=== PATIENT | female | born 1940 | race Caucasian/White ===

== ENCOUNTER 2017-04-13 13:27 | Inpatient (IN) | payer MEDICARE, MEDICAID, SELFPAY ==
[2017-04-13] VITALS (12 sets, daily range): BP systolic 104–166; BP diastolic 53–109; PULSE 72–115; RESP 20–28; TEMP 36.4–37.4; O2SAT 91–100; BMI 25.7; BMI 28.0
--- NOTE | 2017-04-13 13:38 | PC.NURSE ---
RT at to obtain ABG
--- NOTE | 2017-04-13 13:39 | PC.PHONENOTE ---
fentanyl patch to L shoulder
--- NOTE | 2017-04-13 13:42 | XR_ITS ---
XR chest portable Ordering Physician: Pawel Reynoso MD Patient Age: 77 years: Female HISTORY: ITS.REASON: CHEST PAIN AND SOA TECHNIQUE: COMPARISON : Portable chest 10/27/2015 ... & PA and lateral chest January 06, 2017 FINDINGS Left lower lobe pneumonic infiltrate clearly evident, superimposed upon chronic changes evident. Left lower lobe mixed interstitial pneumonia partial obscures left heart border but the diaphragm remains evident and well-defined. Inspiration less optimal. Underlying chronic lung changes with hyperexpansion at the upper lung campuzano again noted reflect underlying COPD. Mild apical pleural scarring left greater the right similar to previous studies. . . Heart normal size. Cardiac silhouette appears smaller than previous studies. Hilar regions appears stable satisfactory. A calcified aortic arch similar to previous studies. The previous vertebroplasty densities at multiple thoracic vertebral bodies are seen projected over the superior mediastinum obtained for density here. Mild blunting right CP angle likely reflecting mild chronic pleural change. Chest wall unremarkable. IMPRESSION: Left lower lobe pneumonia COPD.
--- NOTE | 2017-04-13 14:23 | PC.NURSE ---
RT at bs attempting ABG again at this time.
[2017-04-13 14:30] LABS: Basophils % 0.2 % (0.1-2.0); Eosinophils # 0.1 K/mm3 (0.0-0.4); Eosinophils % 0.4 % (0.1-12.0); Hematocrit 38.5 % (37.0-47.0); Hemoglobin 12.3 g/dL (12.2-16.2); Lymphocytes % 4.8 K/mm3 (10-50); Mean Corpuscular HGB Conc 31.9 g/dL (31.8-35.4); Mean Corpuscular Hemoglobin 33.4 pg (27.0-31.2); Mean Corpuscular Volume 104.6 fl (81-99); Monocytes # 0.8 K/mm3 (0.1-1.0); Monocytes % 4.1 % (1.7-9.3); Neutrophils # 18.4 K/mm3 (1.8-7.8); Neutrophils % 90.5 % (37.0-80.0); Platelet Count 290 K/mm3 (142-424); Red Blood Count 3.68 M/mm3 (4.20-5.40); Red Cell Distribution Width 13.4 % (11.5-17.5); White Blood Count 20.4 K/mm3 (4.8-10.8)
[2017-04-13 14:37] LABS: VBG Base Excess 4.9 mmol/L (-2.4-2.3); VBG HCO3 31.7 mmol/L (23-30); VBG Oxygen Saturation 77.5 % (50-70); VBG PH 7.28 mmol/L (7.31-7.41); VBG PO2 46.9 mmol/L (28-40); VBG Total CO2 33.8 mmol/L (23-27)
[2017-04-13 14:39] LABS: VBG PCO2 69.3 mmol/L (35-51)
[2017-04-13 14:40] LABS: Alanine Aminotransferase 45 U/L (12-78); Albumin Level 3.9 gm/dL (3.4-5.0); Albumin/Globulin Ratio 1.1 (1.1-1.8); Alkaline Phosphatase 140 U/L (46-116); Anion Gap 12.1 mEq/L (5-15); Aspartate Amino Transferase 53 U/L (15-37); Bilirubin,Total 0.4 mg/dL (0.2-1.0); Blood Urea Nitrogen 19 mg/dL (7-18); Carbon Dioxide 33 mmol/L (21.0-32.0); Chloride 93 mmol/L (98-107); Creatinine Clearance Estimated 43 mL/min (0-300); Creatinine,Serum 1.15 mg/dL (0.55-1.02); Estimated Glomerular Filt Rate 46 ml/min (>60); GFR (African American) 55 ML/MIN (>60); Globulin 3.4 gm/dl (1.3-3.2); Glucose 106 mg/dL (74-106); MANUAL DIFFERENTIAL MANUAL DIFFERENTIAL (MANUAL DIFF); Potassium 5.1 mmoL/L (3.5-5.1); Sodium 133 mmol/L (136-145); Total Protein,Serum 7.3 gm/dL (6.4-8.2)
[2017-04-13 14:45] LABS: Lactic Acid 2.3 mmol/L (0.4-2.0); Reflex Lactic Add Lactic Reflex
[2017-04-13 14:54] LABS: CKMB Relative Index 2.6 U/L (0-4.0); Creatine Kinase 38 U/L (26-192); Troponin I < 0.02 ng/ml (0.00-0.06)
[2017-04-13 15:06] LABS: Lymphocytes % 2 % (10-50); Monocytes % 4 % (2-9); Neutrophils % 92 % (42-76); Platelet Estimate Normal; RBC Morphology Normal; Total Cells Counted 100
--- NOTE | 2017-04-13 15:33 | HMH.EDSOB ---
ED Disposition Clinical Impression: Acute respiratory acidosis, CO2 narcosis LLL pneumonia Qualifiers: Pneumonia type: due to unspecified organism Qualified Code(s): J18.1 - Lobar pneumonia, unspecified organism Mental status change Qualifiers: Altered mental status type: unspecified Qualified Code(s): R41.82 - Altered mental status, unspecified Leukocytosis Qualifiers: Leukocytosis type: other Qualified Code(s): D72.828 - Other elevated white blood cell count Disposition: Still a Patient Condition on Discharge: Serious Time of Disposition: 15:33 - Critical Care Critical Care Time: Yes Attestation: On 04/13/17, the high probability of a clinically significant, sudden or life threatening deterioration of the following system(s) required my full and direct attention, intervention and personal management. The time I documented below is in addition to time spent performing reported procedures but includes the following listed in this critical care notation. Total Critical Care Time: 35 Vital system(s) involved:: Central Nervous System, Respiratory Failure My critical care processes included: Assessment & monitoring of V/S, Initial and Re-exams, Data Review/Interpretation, Coordinating Care, Medication Orders and management, Documentation Medical Decision Making - Medical Records Medical records reviewed: Yes: I reviewed the patient's medical records. Vital Signs: 04/13/17 13:28 04/13/17 14:22 04/13/17 14:35 Temperature 99.4 F Temperature Source Temporal Artery Scan Pulse Rate Pulse Rate [Right Brachial] 107 H 115 H Respiratory Rate 26 H 24 Blood Pressure Blood Pressure [Right Arm] 166/99 152/93 Blood Pressure Mean [Right Arm] 121 112 Blood Pressure Source Blood Pressure Source [Right Arm] Automatic Cuff Automatic Cuff Blood Pressure Position Blood Pressure Position [Right Arm] Sitting Sitting 02 Sat by Pulse Oximetry 91 L 95 95 Oxygen Delivery Method Nasal Cannula Nasal Cannula Nasal Cannula Oxygen Flow Rate (LPM) 4 3 3 04/13/17 14:50 04/13/17 16:25 04/13/17 16:26 Temperature Temperature Source Pulse Rate 113 H Pulse Rate [Right Brachial] 113 H Respiratory Rate 26 H 24 Blood Pressure 111/53 Blood Pressure [Right Arm] 141/109 Blood Pressure Mean [Right Arm] 119 Blood Pressure Source Automatic Cuff Blood Pressure Source [Right Arm] Automatic Cuff Blood Pressure Position Sitting Blood Pressure Position [Right Arm] Sitting 02 Sat by Pulse Oximetry 91 L Oxygen Delivery Method Nasal Cannula BiPAP BiPAP Oxygen Flow Rate (LPM) 3 - Lab Data Lab results reviewed: Yes: I reviewed the patient's lab results. Lab Results 04/13/17 13:45: WBC 20.4 H*, RBC 3.68 L, Hgb 12.3, Hct 38.5, MCV 104.6 H, MCH 33.4 H, MCHC 31.9, RDW 13.4, Plt Count 290, MPV 7.0 L, Neut % (Auto) 90.5 H, Lymph % (Auto) 4.8 L, Cuming % (Auto) 4.1, Eos % (Auto) 0.4, Baso % (Auto) 0.2, Neut # (Auto) 18.4 H, Lymph # (Auto) 1.0, Cuming # (Auto) 0.8, Eos # (Auto) 0.1, Baso # (Auto) 0.0, Total Counted 100, Neutrophils % (Manual) 92 H, Band Neutrophils % 2.0, Lymphocytes % (Manual) 2 L, Monocytes % (Manual) 4, Platelet Estimate Normal, RBC Morphology Normal 04/13/17 13:45: Sodium 133 L, Potassium 5.1, Chloride 93 L, Carbon Dioxide 33 H, Anion Gap 12.1, BUN 19 H, Creatinine 1.15 H, Estimated Creat Clear 43, Estimated GFR 46 L, Est GFR ( Amer) 55 L, Glucose 106, Calcium 9.0, Total Bilirubin 0.4, AST 53 H, ALT 45, Alkaline Phosphatase 140 H, Total Protein 7.3, Albumin 3.9, Globulin 3.4 H, Albumin/Globulin Ratio 1.1 04/13/17 13:45: Total Creatine Kinase 38, CK-MB (CK-2) 1.0, CK-MB (CK-2) Rel Index 2.6, Troponin I < 0.02 04/13/17 14:20: Lactic Acid 2.3 H 04/13/17 14:30: VBG pH 7.28 L, VBG pCO2 69.3 H, VBG pO2 46.9 H, VBG HCO3 31.7 H, VBG Total CO2 33.8 H, VBG O2 Saturation 77.5 H, VBG Base Excess 4.9 H Result diagrams: 04/13/17 13:45 01/15/18 13:45 Orders (Tests/Meds): ED MEDICATIONS Gener
--- NOTE | 2017-04-13 15:34 | PC.NURSE ---
RAMIRO ANDRES SPEAKING WITH DR. JERRY
--- NOTE | 2017-04-13 15:39 | PC.NURSE ---
PT PLACED ON BIPAP AT THIS TIME
--- NOTE | 2017-04-13 15:49 | PC.NURSE ---
had me call pharmacy to consult which abx coverage to order for patient since she has multiple allergies and possible MRSA pneumonia. Joelle Torres, PHARM D stated to give Cefepime 2 gram q12hr and Vancomycin 1250mg IV once. Joelle stated she would look at Vancomycin dosing after patient is admitted and will dose. Notified Dr. Spence of orders.
--- NOTE | 2017-04-13 16:54 | HMH.PHACONS ---
- Pharmacy Consult Date: 04/13/17 Time: 16:54 Referring provider: DR. JERRY Reason for Consult:: VANCOMYCIN DOSING Allergies and ADEs:: Allergies Allergy/AdvReac Type Severity Reaction Status Date / Time codeine [CODEINE] Allergy Mild Verified 04/13/17 13:30 erythromycin base Allergy Mild Verified 04/13/17 13:30 [ERYTHROMYCIN BASE] Sulfa (Sulfonamide Allergy Mild Verified 04/13/17 13:30 Antibiotics) [SULFA (SULFONAMIDE ANTIBIOTICS)] amoxicillin [From Amoxil] Allergy Verified 04/13/17 13:30 azithromycin [From Zithromax] Allergy Verified 04/13/17 13:30 cetirizine [From Zyrtec] Allergy Verified 04/13/17 13:30 ciprofloxacin Allergy Verified 04/13/17 13:30 terbutaline [From Brethine] Allergy Verified 04/13/17 13:30 Home Medications:: Home Medications Medication Instructions Recorded Confirmed Type Alendronate Sodium/Vitamin D3 1 each PO WEEKLY 04/13/17 04/13/17 History [Fosamax Plus D 70 mg-2,800 Iu] Aspirin [Aspirin 81mg EC Tab] 81 mg PO DAILY 04/13/17 04/13/17 History Buspirone HCl [Buspar 5mg tablet] 5 mg PO 0600,1700 04/13/17 04/14/17 History Carvedilol [Coreg 3.125mg 3.125 mg PO BID 04/13/17 04/14/17 History Tablet] Cholecalciferol (Vitamin D3) 5,000 unit PO DAILY 04/13/17 04/13/17 History [Vitamin D3] Ferrous Sulfate [Ferrous Sulfate 325 mg PO DAILY 04/13/17 04/14/17 History 325mg Tablet] Fluticasone Propionate [Flonase 2 spr NS BID 04/13/17 04/13/17 History 50mcg nasal spray 16gm] Furosemide [Lasix 20mg tablet] 10 mg PO DAILY 04/13/17 04/14/17 History Ibuprofen [Ibuprofen 800mg Tab] 800 mg PO HS 04/13/17 04/13/17 History LORazepam [Ativan 0.5mg tablet] 0.25 mg PO TID 04/13/17 04/14/17 History Levothyroxine Sodium 88 mcg PO DAILY 04/13/17 04/13/17 History [Levothyroxine 88mcg (0.088mg) Tab] Montelukast Sodium [Singulair 10mg 10 mg PO PM 04/13/17 04/13/17 History tablet] Omeprazole [Omeprazole 40mg 40 mg PO BID 04/13/17 04/13/17 History Capsule] Oxycodone HCl/Acetaminophen 10 - 325 each PO QID 04/13/17 04/13/17 History [Oxycodone W/Apap 325mg Tablet] Polyethylene Glycol 3350 [Miralax 17 gm PO DAILY 04/13/17 04/14/17 History Powder] Sennosides/Docusate Sodium 2 each PO HS 04/13/17 04/13/17 History [Teresa-Colace Tablet] Trazodone HCl 50 mg PO HS 04/13/17 04/13/17 History fentaNYL [fentaNYL 50mcg Patch] 50 mcg TD Q72H 04/13/17 04/13/17 History guaiFENesin [Mucinex 600mg tablet] 600 mg PO Q12H 04/13/17 04/13/17 History predniSONE [Deltasone 10mg 10 mg PO DAILY 04/13/17 04/13/17 History tablet] raNITIdine HCl [Acid Stump Shooter] 150 mg PO BID 04/13/17 04/13/17 History Acetaminophen 500 mg PO Q6HP PRN 04/14/17 04/14/17 History Albuterol Sulfate [Proventil-HFA 2 puffs IH QIDP PRN 04/14/17 04/14/17 History 90mcg/puff Inh] Bisacodyl [Bisacodyl 10mg Supp] 10 mg RC DAILYP PRN 04/14/17 04/14/17 History Guaifenesin/Dextromethorphan 10 ml PO Q4HP PRN 04/14/17 04/14/17 History [Robafen Dm Cough Liquid] Loperamide HCl [Loperamide] 2 mg PO Q3HP PRN MDD 16 MG 04/14/17 04/14/17 History Mag Carb/Aluminum Hydrox/Algin 30 ml PO Q4HP PRN 04/14/17 04/14/17 History [Gaviscon Liquid] Meclizine HCl [Meclizine 25mg Tab] 25 mg PO TIDP PRN 04/14/17 04/14/17 History Melatonin 3 mg PO HS 04/14/17 04/14/17 History Ondansetron HCl [Ondansetron 4mg 4 mg PO Q6HP PRN 04/14/17 04/14/17 History Tab] Phenol/Glycerin [Chloraseptic Max 2 spr MM QIDP PRN 04/14/17 04/14/17 History [place]] Height: 1.63 m Weight: 68.039 kg Laboratory Results:: X Medical History: Denies:: Diabetes Mellitus Type 1, Diabetes Mellitus Type 2 Assessment and Plan (1) LLL pneumonia Current visit: Yes Status: Acute Qualifiers: Pneumonia type: due to unspecified organism Qualified Code(s): J18.1 - Lobar pneumonia, unspecified organism Category: Medical Code(s): J18.1 - Lobar pneumonia, unspecified organism - Assessment and plan all Dx
--- NOTE | 2017-04-13 16:57 | P.CONPHA_ITS ---
- Pharmacy Consult Date: 04/13/17 Time: 16:54 Referring provider: DR. JERRY Reason for Consult:: VANCOMYCIN DOSING Allergies and ADEs:: Allergies Allergy/AdvReac Type Severity Reaction Status Date / Time codeine [CODEINE] Allergy Mild Verified 04/13/17 13:30 erythromycin base Allergy Mild Verified 04/13/17 13:30 [ERYTHROMYCIN BASE] Sulfa (Sulfonamide Allergy Mild Verified 04/13/17 13:30 Antibiotics) [SULFA (SULFONAMIDE ANTIBIOTICS)] amoxicillin [From Amoxil] Allergy Verified 04/13/17 13:30 azithromycin [From Zithromax] Allergy Verified 04/13/17 13:30 cetirizine [From Zyrtec] Allergy Verified 04/13/17 13:30 ciprofloxacin Allergy Verified 04/13/17 13:30 terbutaline [From Brethine] Allergy Verified 04/13/17 13:30 Home Medications:: Home Medications Medication Instructions Recorded Confirmed Type Alendronate Sodium/Vitamin D3 1 each PO WEEKLY 04/13/17 04/13/17 History [Fosamax Plus D 70 mg-2,800 Iu] Aspirin [Aspirin 81mg EC Tab] 81 mg PO DAILY 04/13/17 04/13/17 History Buspirone HCl [Buspar 5mg tablet] 5 mg PO 0600,1700 04/13/17 04/14/17 History Carvedilol [Coreg 3.125mg 3.125 mg PO BID 04/13/17 04/14/17 History Tablet] Cholecalciferol (Vitamin D3) 5,000 unit PO DAILY 04/13/17 04/13/17 History [Vitamin D3] Ferrous Sulfate [Ferrous Sulfate 325 mg PO DAILY 04/13/17 04/14/17 History 325mg Tablet] Fluticasone Propionate [Flonase 2 spr NS BID 04/13/17 04/13/17 History 50mcg nasal spray 16gm] Furosemide [Lasix 20mg tablet] 10 mg PO DAILY 04/13/17 04/14/17 History Ibuprofen [Ibuprofen 800mg Tab] 800 mg PO HS 04/13/17 04/13/17 History LORazepam [Ativan 0.5mg tablet] 0.25 mg PO TID 04/13/17 04/14/17 History Levothyroxine Sodium 88 mcg PO DAILY 04/13/17 04/13/17 History [Levothyroxine 88mcg (0.088mg) Tab] Montelukast Sodium [Singulair 10mg 10 mg PO PM 04/13/17 04/13/17 History tablet] Omeprazole [Omeprazole 40mg 40 mg PO BID 04/13/17 04/13/17 History Capsule] Oxycodone HCl/Acetaminophen 10 - 325 each PO QID 04/13/17 04/13/17 History [Oxycodone W/Apap 325mg Tablet] Polyethylene Glycol 3350 [Miralax 17 gm PO DAILY 04/13/17 04/14/17 History Powder] Sennosides/Docusate Sodium 2 each PO HS 04/13/17 04/13/17 History [Teresa-Colace Tablet] Trazodone HCl 50 mg PO HS 04/13/17 04/13/17 History fentaNYL [fentaNYL 50mcg Patch] 50 mcg TD Q72H 04/13/17 04/13/17 History guaiFENesin [Mucinex 600mg tablet] 600 mg PO Q12H 04/13/17 04/13/17 History predniSONE [Deltasone 10mg 10 mg PO DAILY 04/13/17 04/13/17 History tablet] raNITIdine HCl [Acid Folding Machine Tender] 150 mg PO BID 04/13/17 04/13/17 History Acetaminophen 500 mg PO Q6HP PRN 04/14/17 04/14/17 History Albuterol Sulfate [Proventil-HFA 2 puffs IH QIDP PRN 04/14/17 04/14/17 History 90mcg/puff Inh] Bisacodyl [Bisacodyl 10mg Supp] 10 mg RC DAILYP PRN 04/14/17 04/14/17 History Guaifenesin/Dextromethorphan 10 ml PO Q4HP PRN 04/14/17 04/14/17 History [Robafen Dm Cough Liquid] Loperamide HCl [Loperamide] 2 mg PO Q3HP PRN MDD 16 MG 04/14/17 04/14/17 History Mag Carb/Aluminum Hydrox/Algin 30 ml PO Q4HP PRN 04/14/17 04/14/17 History [Gaviscon Liquid] Meclizine HCl [Meclizine 25mg Tab] 25 mg PO TIDP PRN 04/14/17 04/14/17 History
--- NOTE | 2017-04-13 17:53 | PC.NURSE ---
pt cannot tolerate sara hose at this time
[2017-04-13 19:06] LABS: Lactic Acid Follow Up (RFLX 1) 1.6 (0.4-2.0)
[2017-04-14] VITALS (13 sets, daily range): BP systolic 140–180; BP diastolic 72–97; PULSE 63–111; RESP 20–24; TEMP 36.2–37.4; O2SAT 90–100
--- NOTE | 2017-04-14 00:29 | PC.NURSE ---
UPON CHARTING ASSESSMENT PT TRIGGERED FOR SEVERE SEPSIS R/T: WBC: 20.4 RR > 20 HR > 90 PT USE OF BIPAP AND DOCUMENTED INFECTION NOTIFIED @ 0006 ([facility]) ORDER: GIVE 1L BOLUS OF LR STAT.
--- NOTE | 2017-04-14 03:47 | PC.NURSE ---
Addendum entered by Michelle Bernstein RN 04/14/17 03:59: VSS Original Note: PT HAS BEEN VERY ANXIOUS AND RESTLESS TONIGHT, STATES I CANT GET ANY SLEEP WITH THIS THING ON MY FACE. PT EDUCATED MULTIPLE TIMES ON USE OF BIPAP AND THE IMPORTANCE OF LEAVING IT ON. PT GIVEN PRN ATIVAN, PT IS RESTING IN BED WITH EYES CLOSED AT THIS TIME WITH NO COMPLAINTS. TEDS TO BLE NOTED. RHONCHI NOTED DURING LUNG AUSCULTATION. BS ACTIVE IN ALL 4 QAUDS. PT WILL NOT ANSWER STAFF WHEN ASKED NAME AND , PT JUST SCREAMS TAKE THIS THING OFF OF ME. CONTINUES PULSE OX IN PLACE, SATS HAVE REMAINED IN MID TO HIGH 90s. ANXIETY WILL CONTINUE TO BE MONITOR. CALL LIGHT IN REACH, WILL CONTINUE TO MONITOR.
--- NOTE | 2017-04-14 05:44 | PC.NURSE ---
PT HAS NOT VOIDED THIS SHIFT. NURSE IS AWARE & WAS NOTIFIED
--- NOTE | 2017-04-14 07:28 | PC.NURSE ---
REPORT GIVEN TO Pricila JENSEN
--- NOTE | 2017-04-14 07:35 | PC.NURSE ---
REPORT GIVEN TO Cyndy BHAKTA RN
--- NOTE | 2017-04-14 08:03 | PC.NURSE ---
0715 - Received report from Michelle Bernstein RN.
--- NOTE | 2017-04-14 08:19 | HMH.PHAVTE ---
[facility] Pharmacy VTE Monitoring - Patient Demographics Admission date: 04/13/17 Report Date: 04/14/17 Time: 08:19 Allergies/Adverse Reactions: codeine [CODEINE] Allergy (Mild, Verified 04/13/17 13:30) erythromycin base [ERYTHROMYCIN BASE] Allergy (Mild, Verified 04/13/17 13:30) Sulfa (Sulfonamide Antibiotics) [SULFA (SULFONAMIDE ANTIBIOTICS)] Allergy (Mild, Verified 04/13/17 13:30) amoxicillin [From Amoxil] Allergy (Verified 04/13/17 13:30) azithromycin [From Zithromax] Allergy (Verified 04/13/17 13:30) cetirizine [From Zyrtec] Allergy (Verified 04/13/17 13:30) ciprofloxacin Allergy (Verified 04/13/17 13:30) terbutaline [From Brethine] Allergy (Verified 04/13/17 13:30) Height: 1.6 m Weight: 71.866 kg Patient Problems: Current Active Problems LLL pneumonia (Acute) Acute respiratory acidosis (Acute) CO2 narcosis (Acute) Mental status change (Acute) Leukocytosis (Acute) - VTE Risk Labs: VTE Related Lab Results Hgb 12.3 g/dL (12.2-16.2) 04/13/17 13:45 Hct 38.5 % (37.0-47.0) 04/13/17 13:45 Plt Count 290 K/mm3 (142-424) 04/13/17 13:45 BUN 19 mg/dL (7-18) H 04/13/17 13:45 Creatinine 1.15 mg/dL (0.55-1.02) H 04/13/17 13:45 Estimated Creat Clear 43 mL/min (0-300) 04/13/17 13:45 Was VTE Risk Assessment Performed: Yes VTE Risk Level: Very Low Risk - Prophylaxis VTE Prophylaxis Ordered?: Yes Types of VTE Prophylaxis: TEDS Knee High Location of Applied Device: Bilateral Lower Extremeties - VTE Diagnosis Confirmed Treatment or plan recommended: Continue Current Treatment
--- NOTE | 2017-04-14 09:39 | HMH.HP ---
*Admission Date: 04/13/17 *Chief complaint: sob *History of present illness: [facility] - This is a 77-year-old female presenting to the emergency room with productive cough, junction, subjective fever, shortness of breath, for approximately 4 hours, gradually getting worse. Patient is very anxious, describing her pain is pleuritic, over her left chest, worse with deep inspiration. She has a recent travel, denies recent exposure to sick contacts. MD Complaint: shortness of breath, cough, chest pain, anxiety [facility] History I have reviewed the patient's past medical history: Yes Medical History: Reports:: Aneurysm, Cancer (LEFT UPPER ARM) Denies:: Diabetes Mellitus Type 1, Diabetes Mellitus Type 2, MRSA Other Medical History: Reports: Arthritis, Thyroid Disease Laterality Cases: Left: Breast Biopsy, Lumpectomy Other Surgeries: Yes: Cancer Surgery, Colonoscopy, Hysterectomy-Total Amputation: No Fractures: No - *Social History Educational Level: Completed High School Smoking Status: Current every day smoker Tobacco Type: cigarettes # Packs/Day (cigarettes): 1 #Yrs smoked (if former smoker): 30 Alcohol Intake: former Alcohol Intake Frequency:: other Occupational Status: retired Housing: jail Household Members: caregiver - Psychiatric History Expresses thoughts of harming self/others: None Suicide Plan Description: No Plan *Family Hx:: Cancer, Heart Attack Review of Systems - Review of Systems Review of systems:: pertinent systems reviewed and negative unless documented below - Constitutional Reports fever(s) - Eyes Denies change in vision - ENT Denies neck pain - *Cardiovascular Reports shortness of breath, Denies chest pain at rest - *Respiratory Reports cough, Reports shortness of breath with activity - *Gastrointestinal Denies nausea - *Musculoskeletal Denies joint pain, Denies neck pain - Integumentary/Breasts Denies rash - *Neurologic Reports other (Episodes of confusion), Denies seizure-like activity, Denies tingling/numbness/burning sensations Meds Home Medications Medication Instructions Recorded Confirmed Type Alendronate Sodium/Vitamin D3 1 each PO WEEKLY 04/13/17 04/13/17 History [Fosamax Plus D 70 mg-2,800 Iu] Aspirin [Aspirin 81mg EC Tab] 81 mg PO DAILY 04/13/17 04/13/17 History Buspirone HCl [Buspar 5mg tablet] 5 mg PO BID 04/13/17 04/13/17 History Carvedilol [Coreg 3.125mg 3.125 mg PO BID 04/13/17 04/14/17 History Tablet] Cholecalciferol (Vitamin D3) 5,000 unit PO DAILY 04/13/17 04/13/17 History [Vitamin D3] Ferrous Sulfate [Ferrous Sulfate 325 mg PO DAILY 04/13/17 04/13/17 History 325mg Tablet] Fluticasone Propionate [Flonase 2 spr NS BID 04/13/17 04/13/17 History 50mcg nasal spray 16gm] Furosemide [Lasix 20mg tablet] 20 mg PO DAILY 04/13/17 04/13/17 History Ibuprofen [Ibuprofen 800mg Tab] 800 mg PO HS 04/13/17 04/13/17 History LORazepam [Ativan 0.5mg tablet] 0.5 mg PO TID 04/13/17 04/13/17 History Levothyroxine Sodium 88 mcg PO DAILY 04/13/17 04/13/17 History [Levothyroxine 88mcg (0.088mg) Tab] Melatonin/Pyridoxine HCl (B6) 1 each PO HS 04/13/17 04/13/17 History [Melatonin 3 mg Tablet] Montelukast Sodium [Singulair 10mg 10 mg PO PM 04/13/17 04/13/17 History tablet] Omeprazole [Omeprazole 40mg 40 mg PO BID 04/13/17 04/13/17 History Capsule] Oxycodone HCl/Acetaminophen 10 - 325 each PO QID 04/13/17 04/13/17 History [Oxycodone W/Apap 325mg Tablet] Polyethylene Glycol 3350 [Miralax 17 gm PO POSTTR 04/13/17 04/13/17 History Powder] Sennosides/Docusate Sodium 2 each PO HS 04/13/17 04/13/17 History [Teresa-Colace Tablet] Trazodone HCl 50 mg PO HS 04/13/17 04/13/17 History fentaNYL [fentaNYL 50mcg Patch] 50 mcg TD Q72H 04/13/17 04/13/17 History guaiFENesin [Mucinex 600mg tablet] 600 mg PO Q12H 04/13/17 04/13/17 History predniSONE [Deltasone 10mg 10 mg PO DAILY 04/13/17 01
--- NOTE | 2017-04-14 09:46 | P.HP_ITS ---
*Admission Date: 04/13/17 *Chief complaint: sob *History of present illness: this wf sent from [facility] for cough and dec po intake - This is a 77-year-old female presenting to the emergency room with productive cough, junction, subjective fever, shortness of breath, for approximately 4 hours, gradually getting worse. Patient is very anxious, describing her pain is pleuritic, over her left chest, worse with deep inspiration. She has a recent travel, denies recent exposure to sick contacts. MD Complaint: shortness of breath, cough, chest pain, anxiety [facility] History I have reviewed the patient's past medical history: Yes Medical History: Reports:: Aneurysm, Cancer (LEFT UPPER ARM) Denies:: Diabetes Mellitus Type 1, Diabetes Mellitus Type 2, MRSA Other Medical History: Reports: Arthritis, Thyroid Disease Laterality Cases: Left: Breast Biopsy, Lumpectomy Other Surgeries: Yes: Cancer Surgery, Colonoscopy, Hysterectomy-Total Amputation: No Fractures: No - *Social History Educational Level: Completed High School Smoking Status: Current every day smoker Tobacco Type: cigarettes # Packs/Day (cigarettes): 1 #Yrs smoked (if former smoker): 30 Alcohol Intake: former Alcohol Intake Frequency:: other Occupational Status: retired Housing: snf Household Members: caregiver - Psychiatric History Expresses thoughts of harming self/others: None Suicide Plan Description: No Plan *Family Hx:: Cancer, Heart Attack Review of Systems - Review of Systems Review of systems:: pertinent systems reviewed and negative unless documented below - Constitutional Reports fever(s) - Eyes Denies change in vision - ENT Denies neck pain - *Cardiovascular Reports shortness of breath, Denies chest pain at rest - *Respiratory Reports cough, Reports shortness of breath with activity - *Gastrointestinal Denies nausea - *Musculoskeletal Denies joint pain, Denies neck pain - Integumentary/Breasts Denies rash - *Neurologic Reports other (Episodes of confusion), Denies seizure-like activity, Denies tingling/numbness/burning sensations Meds Home Medications Medication Instructions Recorded Confirmed Type Alendronate Sodium/Vitamin D3 1 each PO WEEKLY 04/13/17 04/13/17 History [Fosamax Plus D 70 mg-2,800 Iu] Aspirin [Aspirin 81mg EC Tab] 81 mg PO DAILY 04/13/17 04/13/17 History Buspirone HCl [Buspar 5mg tablet] 5 mg PO BID 04/13/17 04/13/17 History Carvedilol [Coreg 3.125mg 3.125 mg PO BID 04/13/17 04/14/17 History Tablet] Cholecalciferol (Vitamin D3) 5,000 unit PO DAILY 04/13/17 04/13/17 History [Vitamin D3] Ferrous Sulfate [Ferrous Sulfate 325 mg PO DAILY 04/13/17 04/13/17 History 325mg Tablet] Fluticasone Propionate [Flonase 2 spr NS BID 04/13/17 04/13/17 History 50mcg nasal spray 16gm] Furosemide [Lasix 20mg tablet] 20 mg PO DAILY 04/13/17 04/13/17 History Ibuprofen [Ibuprofen 800mg Tab] 800 mg PO HS 04/13/17 04/13/17 History LORazepam [Ativan 0.5mg tablet] 0.5 mg PO TID 04/13/17 04/13/17 History Levothyroxine Sodium 88 mcg PO DAILY 04/13/17 04/13/17 History [Levothyroxine 88mcg (0.088mg) Tab] Melatonin/Pyridoxine HCl (B6) 1 each PO HS 04/13/17 04/13/17 History [Melatonin 3 mg Tablet] Montelukast Sodium [Singulair 10mg 10 mg PO PM 04/13/17 04/13/17 History tablet] Omeprazole [Omeprazole 40mg 40 mg PO BID 04/13/17 04/13/17 History Capsule*
[2017-04-14 10:33] LABS: ABG Base Excess 0.9 mmol/L (-2.4-2.3); ABG HCO3 25.1 mmhg (22.0-26.0); ABG Oxygen Saturation 94 % (90-100); ABG PH 7.44 mmol/L (7.35-7.45); ABG PO2 66.7 mmhg (80-100); ABG TCO2 26.3 mmhg (23-27)
[2017-04-14 10:34] LABS: Oxygen 2 %
[2017-04-14 10:35] LABS: Allen's Test ACCEPTABLE; Source R. RADIAL
--- NOTE | 2017-04-14 11:04 | SW/DCPLANNER ---
Patient is a resident at [facility]. I have spoke with Anne from [facility] and she has stated that patient is [facility] level of care and they will accept her back once she is ready for discharge.
--- NOTE | 2017-04-14 13:30 | PC.NURSE ---
PT NOTED TO HAVE A FENTANYL 50MG PATCH ON (L) UPPER ARM. PATCH IS NOT DATED.
--- NOTE | 2017-04-14 15:30 | PC.NURSE ---
Pt has been A&Ox3 this shift in NAD. VSS. Afebrile. Heart rate reg. Lungs /c rhonchi scattered throughout. O2 @ 4LPM via NC with O2 sats maintaining > 90%; sats will decrease < 90% with ADLs. IV (R) AC intact /s s/s of infiltration/infection. Pt has been OOB to chair this shift. Will continue to monitor.
--- NOTE | 2017-04-14 16:04 | PC.NURSE ---
PT C/O BACK PAIN AND REQUESTED PAIN MEDICATION. NO PAIN MEDICATION ORDERED ON MAY. APPROACHED DR JERRY WHILE ON THE FLOOR AND REQUESTED PAIN MEDICATION FOR THIS PT. HIS RESPONSE WAS I WILL NOT GIVE HER PAIN MEDICATION. THIS NURSE THEN INFORMED HIM THAT SHE WAS WEARING A FENTANYL PATCH WITHOUT A DATE ON IT. DR JERRY'S RESPONSE WAS THAT SHOULD TAKE CARE OF IT.
--- NOTE | 2017-04-14 18:44 | PC.NURSE ---
rEPORT GIVEN TO Rodri PRITCHETT RN.
[2017-04-15] VITALS (8 sets, daily range): BP systolic 129–153; BP diastolic 72–78; PULSE 62–107; RESP 20–22; TEMP 36.8–37.2; O2SAT 88–95
--- NOTE | 2017-04-15 03:32 | PC.NURSE ---
PT HAS RESTED ON AND OFF T/O THE SHIFT. PT TOLERATING 2L NC WELL, CONTINUOUS PULSE OX IN PLACE AND SATS HAVE REMAINED IN MID 90S. PT A&OX3. RHONCHI NOTED DURING LUNG AUSCULTATION. BS ACTIVE IN ALL [address] PT UP TO BSC X1 ASSISTANCE. NO ACUTE DISTRESS NOTED. VSS. WILL CONTINUE TO MONITOR.
--- NOTE | 2017-04-15 07:22 | PC.NURSE ---
REPORT GIVEN TO Juan JENSEN
--- NOTE | 2017-04-15 07:27 | PC.NURSE ---
REPORT GIVEN TO Lj REYES RN
--- NOTE | 2017-04-15 09:11 | HMH.DCSUM ---
General - General Admission date: 04/13/17 Discharge date: 04/15/17 HPI HPI: this wf sent from [facility] for cough and dec po intake - This is a 77-year-old female presenting to the emergency room with productive cough, junction, subjective fever, shortness of breath, for approximately 4 hours, gradually getting worse. Patient is very anxious, describing her pain is pleuritic, over her left chest, worse with deep inspiration. She has a recent travel, denies recent exposure to sick contacts. MD Complaint: shortness of breath, cough, chest pain, anxiety Objective Vital signs: Temp Pulse Resp BP Pulse Ox 98.4 F 107 H 20 129/72 95 04/15/17 07:39 04/15/17 07:59 04/15/17 07:59 04/15/17 07:39 04/15/17 07:59 no acute distress - *Routine HEENT Exam Head: Present: normocephalic Eye: Present: EOMI, PERRL ENT: Present: mucous membranes dry - *Routine Neck Exam Absent: JVD - *Routine Respiratory Exam Absent: respiratory distress - *Routine Cardiovascular Exam Present: murmur - *Routine Abdominal Exam Present: soft - *Routine Extremities Exam Absent: full ROM - *Routine Skin Exam Present: intact. Absent: lesions - *Routine Neurological Exam Present: alert, oriented X3, CN II-XII intact - Routine Psychiatric Exam Present: normal affect Hospital Course Hospital Course: pt did well with ivf and bpap with improved blood gas and on abx - pt tolerating diet and stable sx and pulse oxy Results Labs on day of discharge: Labs from last 24 hours 04/14/17 10:25 Specimen Source R. radial O2 % 2 ABG pH 7.44 ABG pCO2 38.0 ABG pO2 66.7 L ABG HCO3 25.1 ABG Total CO2 26.3 ABG O2 Saturation 94 ABG Base Excess 0.9 Eliu Test Acceptable DS: Diagnosis - Discharge Diagnosis (1) HCAP (healthcare-associated pneumonia) Status: Acute (2) Renal insufficiency Status: Acute Meds Home Medications Medication Instructions Recorded Confirmed Type Alendronate Sodium/Vitamin D3 1 each PO WEEKLY 04/13/17 04/13/17 History [Fosamax Plus D 70 mg-2,800 Iu] Aspirin [Aspirin 81mg EC Tab] 81 mg PO DAILY 04/13/17 04/13/17 History Buspirone HCl [Buspar 5mg tablet] 5 mg PO 0600,1700 04/13/17 04/14/17 History Carvedilol [Coreg 3.125mg 3.125 mg PO BID 04/13/17 04/14/17 History Tablet] Cholecalciferol (Vitamin D3) 5,000 unit PO DAILY 04/13/17 04/13/17 History [Vitamin D3] Ferrous Sulfate [Ferrous Sulfate 325 mg PO DAILY 04/13/17 04/14/17 History 325mg Tablet] Fluticasone Propionate [Flonase 2 spr NS BID 04/13/17 04/13/17 History 50mcg nasal spray 16gm] Furosemide [Lasix 20mg tablet] 10 mg PO DAILY 04/13/17 04/14/17 History Ibuprofen [Ibuprofen 800mg Tab] 800 mg PO HS 04/13/17 04/13/17 History LORazepam [Ativan 0.5mg tablet] 0.25 mg PO TID 04/13/17 04/14/17 History Levothyroxine Sodium 88 mcg PO DAILY 04/13/17 04/13/17 History [Levothyroxine 88mcg (0.088mg) Tab] Montelukast Sodium [Singulair 10mg 10 mg PO PM 04/13/17 04/13/17 History tablet] Omeprazole [Omeprazole 40mg 40 mg PO BID 04/13/17 04/13/17 History Capsule] Oxycodone HCl/Acetaminophen 10 - 325 each PO QID 04/13/17 04/13/17 History [Oxycodone W/Apap 325mg Tablet] Polyethylene Glycol 3350 [Miralax 17 gm PO DAILY 04/13/17 04/14/17 History Powder] Sennosides/Docusate Sodium 2 each PO HS 04/13/17 04/13/17 History [Teresa-Colace Tablet] Trazodone HCl 50 mg PO HS 04/13/17 04/13/17 History fentaNYL [fentaNYL 50mcg Patch] 50 mcg TD Q72H 04/13/17 04/13/17 History guaiFENesin [Mucinex 600mg tablet] 600 mg PO Q12H 04/13/17 04/13/17 History predniSONE [Deltasone 10mg 10 mg PO DAILY 04/13/17 04/13/17 History tablet] raNITIdine HCl [Acid [employer]ing Supplies Sales Representative] 150 mg PO BID 04/13/17 04/13/17 History Acetaminophen 500 mg PO Q6HP PRN 04/14/17 04/14/17 History Albuterol Sulfate [Proventil-HFA 2 puffs IH QIDP PRN 04/14/17 04/14/17 History 90mcg/puff Inh] Bisacodyl [Bi
--- NOTE | 2017-04-15 09:14 | P.DS_ITS ---
General - General Admission date: 04/13/17 Discharge date: 04/15/17 HPI HPI: this wf sent from [facility] for cough and dec po intake - This is a 77-year-old female presenting to the emergency room with productive cough, junction, subjective fever, shortness of breath, for approximately 4 hours, gradually getting worse. Patient is very anxious, describing her pain is pleuritic, over her left chest, worse with deep inspiration. She has a recent travel, denies recent exposure to sick contacts. MD Complaint: shortness of breath, cough, chest pain, anxiety Objective Vital signs: Temp Pulse Resp BP Pulse Ox 98.4 F 107 H 20 129/72 95 04/15/17 07:39 04/15/17 07:59 04/15/17 07:59 04/15/17 07:39 04/15/17 07:59 no acute distress - *Routine HEENT Exam Head: Present: normocephalic Eye: Present: EOMI, PERRL ENT: Present: mucous membranes dry - *Routine Neck Exam Absent: JVD - *Routine Respiratory Exam Absent: respiratory distress - *Routine Cardiovascular Exam Present: murmur - *Routine Abdominal Exam Present: soft - *Routine Extremities Exam Absent: full ROM - *Routine Skin Exam Present: intact. Absent: lesions - *Routine Neurological Exam Present: alert, oriented X3, CN II-XII intact - Routine Psychiatric Exam Present: normal affect Hospital Course Hospital Course: pt did well with ivf and bpap with improved blood gas and on abx - pt tolerating diet and stable sx and pulse oxy Results Labs on day of discharge: Labs from last 24 hours 04/14/17 10:25 Specimen Source R. radial O2 % 2 ABG pH 7.44 ABG pCO2 38.0 ABG pO2 66.7 L ABG HCO3 25.1 ABG Total CO2 26.3 ABG O2 Saturation 94 ABG Base Excess 0.9 Eliu Test Acceptable DS: Diagnosis - Discharge Diagnosis (1) HCAP (healthcare-associated pneumonia) Status: Acute (2) Renal insufficiency Status: Acute Meds Home Medications Medication Instructions Recorded Confirmed Type Alendronate Sodium/Vitamin D3 1 each PO WEEKLY 04/13/17 04/13/17 History [Fosamax Plus D 70 mg-2,800 Iu] Aspirin [Aspirin 81mg EC Tab] 81 mg PO DAILY 04/13/17 04/13/17 History Buspirone HCl [Buspar 5mg tablet] 5 mg PO 0600,1700 04/13/17 04/14/17 History Carvedilol [Coreg 3.125mg 3.125 mg PO BID 04/13/17 04/14/17 History Tablet] Cholecalciferol (Vitamin D3) 5,000 unit PO DAILY 04/13/17 04/13/17 History [Vitamin D3] Ferrous Sulfate [Ferrous Sulfate 325 mg PO DAILY 04/13/17 04/14/17 History 325mg Tablet] Fluticasone Propionate [Flonase 2 spr NS BID 04/13/17 04/13/17 History 50mcg nasal spray 16gm] Furosemide [Lasix 20mg tablet] 10 mg PO DAILY 04/13/17 04/14/17 History Ibuprofen [Ibuprofen 800mg Tab] 800 mg PO HS 04/13/17 04/13/17 History LORazepam [Ativan 0.5mg tablet] 0.25 mg PO TID 04/13/17 04/14/17 History Levothyroxine Sodium 88 mcg PO DAILY 04/13/17 04/13/17 History [Levothyroxine 88mcg (0.088mg) Tab] Montelukast Sodium [Singulair 10mg 10 mg PO PM 04/13/17 04/13/17 History tablet] Omeprazole [Omeprazole 40mg 40 mg PO BID 04/13/17 04/13/17 History Capsule] Oxycodone HCl/Acetaminophen 10 - 325 each PO QID 04/13/17 04/13/17 His
--- NOTE | 2017-04-15 10:16 | PC.NURSE ---
REPORT CALLED TO WINNIE RICKS CALVERT. pT INFORMED MEDICAID MAY NOT COVER AMBULANCE TRANSFER BACK TO FACILITY. PT VERBALIZED UNDERSTANDING.
== END 2017-04-15 11:15 | DRG 194 ==
LOC: ER 15:24 → 2ND 16:00
PROVIDERS: Admitting Provider Emergency Medicine; Emergency Provider Emergency Medicine; PCP Emergency Medicine; Visit Provider Emergency Medicine
DX: J18.1 Lobar pneumonia, unspecified organism (principal); E87.2 Acidosis; Y95 Nosocomial condition; Z99.81 Dependence on supplemental oxygen; J43.9 Emphysema, unspecified; I10 Essential (primary) hypertension; Z72.0 Tobacco use
CPT/HCPCS: 36415; 71045; 80053; 82550; 82553; 82803; 83605; 84484; 85007; 85025; 87040; 93005; 93041; 94640; 94660; 94760; 94761; 96365; 96366; 96375; 96376; 99285; J3370

== ENCOUNTER → 2017-04-17 16:24 | Outpatient (REF) | payer MEDICARE, MEDICAID, SELFPAY | LOC: LAB 16:24 | PROVIDERS: Visit Provider Emergency Medicine | DX: R05 Cough (principal) | CPT/HCPCS: 87275; 87276 ==

== ENCOUNTER → 2017-04-30 11:08 | Outpatient (POV) | payer MEDICARE, MEDICAID, SELFPAY | PROVIDERS: PCP Emergency Medicine; Visit Provider Dermatology | DX: Z00.00 Encounter for general adult medical examination without abnormal findings (principal) ==

== ENCOUNTER 2017-06-11 11:29 | Emergency (ER) | payer MEDICARE, MEDICAID, SELFPAY ==
[2017-06-11 11:32] VITALS: BP 169/110; PULSE 75; RESP 24; TEMP 36.6; O2SAT 95; BMI 24.3
--- NOTE | 2017-06-11 11:45 | HMH.EDGENADL ---
ED Disposition Clinical Impression: Chronic pain disorder, Thoracic compression fracture Disposition: Home, Self-Care Condition on Discharge: Fair Referrals: Hoang Tucker MD [Primary Care Provider] - - Critical Care Critical Care Time: No Attestation: On , the high probability of a clinically significant, sudden or life threatening deterioration of the following system(s) required my full and direct attention, intervention and personal management. The time I documented below is in addition to time spent performing reported procedures but includes the following listed in this critical care notation. Medical Decision Making - Medical Records Medical records reviewed: Yes: I reviewed the patient's medical records. - Buster Inquiry Pt receiving controlled substance: No Buster was queried for this patient: No Vital Signs: 06/11/17 11:32 06/11/17 13:42 Temperature 97.8 F Temperature Source Oral Pulse Rate [Right Brachial] 75 Respiratory Rate 24 Blood Pressure [Right Arm] 169/110 Blood Pressure Mean [Right Arm] 129 Blood Pressure Source [Right Arm] Automatic Cuff Blood Pressure Position [Right Arm] Supine 02 Sat by Pulse Oximetry 95 Oxygen Delivery Method Nasal Cannula Nasal Cannula Oxygen Flow Rate (LPM) 2 2 - Lab Data Lab Results 06/11/17 12:14: WBC 8.0, RBC 3.42 L, Hgb 11.6 L, Hct 36.3 L, MCV 106.2 H, MCH 33.8 H, MCHC 31.9, RDW 13.0, Plt Count 352, MPV 7.5, Neut % (Auto) 65.0, Lymph % (Auto) 23.5, Starr % (Auto) 8.5, Eos % (Auto) 2.4, Baso % (Auto) 0.6, Neut # (Auto) 5.2, Lymph # (Auto) 1.9, Starr # (Auto) 0.7, Eos # (Auto) 0.2, Baso # (Auto) 0.1 06/11/17 12:14: Sodium 133 L, Potassium 4.3, Chloride 95 L, Carbon Dioxide 34 H, Anion Gap 8.3, BUN 17, Creatinine 1.06 H, Estimated Creat Clear 43, Estimated GFR 50 L, Est GFR ( Amer) 61, Glucose 98, Calcium 8.8, Total Bilirubin 0.2, AST 18, ALT 29, Alkaline Phosphatase 151 H, Troponin I < 0.02, Total Protein 6.9, Albumin 3.1 L, Globulin 3.8 H, Albumin/Globulin Ratio 0.8 L, Lipase 198 06/11/17 12:14: Magnesium 2.1 Result diagrams: 06/11/17 12:14 06/11/17 12:14 Orders (Tests/Meds): ED MEDICATIONS Discontinued Medications Generic Name Dose Route Start Last Admin Trade Name Alex PRN Reason Stop Dose Admin Albuterol/Ipratropium 3 ml 06/11/17 13:17 06/11/17 13:41 Duoneb 3ml Neb IH 06/11/17 13:18 3 ml ONCE ONE Administration Oxycodone/Acetaminophen 1 each 06/11/17 13:17 06/11/17 13:20 Percocet 5/325mg Tablet PO 06/11/17 13:18 1 each ONCE ONE Administration Medical Decision Narrative: I discussed the CT scan with a primary care physician Lyn Chin who advised the patient be transferred to [place]. The patient was agreeable to go to the closest center for her spine care. The patient received the Percocet with some improvement of her pain underwent thoracic spine that was positive for T3 and T8 compression fracture with retropulsion. I spoke with Dr. Zamora from [facility] spine and he accepted her for evaluation. She had no neurological deficits. General Adult HPI - General Chief complaint: PAIN Stated complaint: C/O BACK PAIN Time Seen by Provider: 06/11/17 12:13 Mode of Arrival: EMS Limitations: No Limitations Description of Symptoms (Recalled from ER Triage Doc. by RN): C/PO MID BACK AND RIGHT SHOULDER PAIN WORSE FOR LAST TWO WEEKS. PREVIOUSLY HAD X RAYS A FEW DAYS AGO PER HALF-WAY REPORT - History of Present Illness HPI narrative: 77 years old white female with end-stage lung disease who continues to smoke, DNR. She is oxygen and steroid dependent. She has been experiencing lower thoracic pain for the past 2 weeks she underwent chest x-ray on June 09, 2017 which was positive for emphysema and multiple osteoporotic compression fractures of thoracic spine with kyphotic deformity. Patient is on chronic pain control using fentanyl patch 50 mcg and she sti
--- NOTE | 2017-06-11 11:55 | CT_ITS ---
CT thoracic spine wo con CLINICAL INDICATION: Thoracic pain, history of compression fracture. ITS.REASON: lower thoracic pain x 2 weeks, hx of compression f ORDERING PHYSICIAN: Jie Leo MD PATIENT AGE: 77 years COMPARISON: Chest CT of 04/17/2016 FINDINGS: Patient could not be scanned supine and was therefore scanned on her left side. FINDINGS: There is new mild compression change involving the superior endplate of T3. There is diffuse generalized osteopenia with severe wedge compression of T8 and post kyphoplasty changes at T5, T6, and T7. There is thoracic kyphosis. There are old left-sided rib fractures. There is mild retropulsion of the posterior inferior aspect of the T8 vertebral body x 5 mm. IMPRESSION: 1. Mild acute superior endplate compression changes of T3. Very minimal retropulsion of the posterior aspect of T3. The compression changes are approximately 30-40% 2. Prior vertebroplasty at T5, T6, and T7 with severe wedge compression changes of T8 and kyphosis of the lower thoracic spine. There is mild retropulsion of the posterior inferior aspect of the T8 vertebral body x 5 mm. 3. Diffuse osteopenia. The exam is somewhat limited due to patient positioning
--- NOTE | 2017-06-11 11:55 | XR_ITS ---
XR chest 2V HISTORY: ITS.REASON: right lower rib pain x 2 weeks. ORDERING PHYSICIAN: Jie Leo MD PATIENT AGE: 77 years COMPARISON: 04/13/2017 FINDINGS: The cardiomediastinal silhouette and pulmonary vascularity are within normal limits. Chronic opacities noted in the left perihilar region with chronic consolidation or volume loss within the lingula as seen on the previous study. Right lung is clear. There is mild wedging involving the T3 vertebral body which is developed in the interval. Prior kyphoplasty at the 5, T6, T7 with severe wedging of T8 and thoracic kyphosis. IMPRESSION: 1. New mild wedging of the T3 vertebral body superiorly. 2. No other change is evident.
--- NOTE | 2017-06-11 11:56 | XR_ITS ---
XR ribs RT 2V HISTORY: Right rib pain ITS.REASON: PAIN IN THE RIBS ORDERING PHYSICIAN: Jie Leo MD PATIENT AGE: 77 years COMPARISON: None FINDINGS: Multiple views of the right ribs show no evidence of acute fracture. There are old left-sided rib fractures. No evidence of pneumothorax. No effusions or infiltrates. IMPRESSION: No acute fracture apparent
[2017-06-11 12:25] LABS: Basophils # 0.1 K/mm3 (0-0.2); Basophils % 0.6 % (0.1-2.0); Eosinophils # 0.2 K/mm3 (0.0-0.4); Eosinophils % 2.4 % (0.1-12.0); Hematocrit 36.3 % (37.0-47.0); Hemoglobin 11.6 g/dL (12.2-16.2); Lymphocytes # 1.9 K/mm3 (0.7-4.5); Lymphocytes % 23.5 K/mm3 (10-50); Mean Corpuscular HGB Conc 31.9 g/dL (31.8-35.4); Mean Corpuscular Hemoglobin 33.8 pg (27.0-31.2); Mean Corpuscular Volume 106.2 fl (81-99); Mean Platelet Volume 7.5 fl (7.4-10.4); Monocytes # 0.7 K/mm3 (0.1-1.0); Monocytes % 8.5 % (1.7-9.3); Neutrophils # 5.2 K/mm3 (1.8-7.8); Platelet Count 352 K/mm3 (142-424); Red Blood Count 3.42 M/mm3 (4.20-5.40)
[2017-06-11 12:31] LABS: Magnesium 2.1 mg/dL (1.4-2.2)
[2017-06-11 12:40] LABS: Alanine Aminotransferase 29 U/L (12-78); Albumin Level 3.1 gm/dL (3.4-5.0); Albumin/Globulin Ratio 0.8 (1.1-1.8); Alkaline Phosphatase 151 U/L (46-116); Anion Gap 8.3 mEq/L (5-15); Aspartate Amino Transferase 18 U/L (15-37); Bilirubin,Total 0.2 mg/dL (0.2-1.0); Blood Urea Nitrogen 17 mg/dL (7-18); Calcium 8.8 mg/dL (8.5-10.1); Carbon Dioxide 34 mmol/L (21.0-32.0); Chloride 95 mmol/L (98-107); Creatinine Clearance Estimated 43 mL/min (0-300); Creatinine,Serum 1.06 mg/dL (0.55-1.02); Estimated Glomerular Filt Rate 50 ml/min (>60); GFR (African American) 61 ML/MIN (>60); Globulin 3.8 gm/dl (1.3-3.2); Glucose 98 mg/dL (74-106); Lipase 198 u/L (73-393); Potassium 4.3 mmoL/L (3.5-5.1); Sodium 133 mmol/L (136-145); Total Protein,Serum 6.9 gm/dL (6.4-8.2); Troponin I < 0.02 ng/ml (0.00-0.06)
[2017-06-11 16:14] VITALS: BP 145/85; PULSE 72; RESP 20; TEMP 36.9; O2SAT 95
== END 2017-06-11 16:16 | disposition home or self-care (01) ==
PROVIDERS: Emergency Provider Emergency Medicine; PCP Emergency Medicine
DX: S22.060A Wedge compression fracture of T7-T8 vertebra, initial encounter for closed fracture (principal); Z99.81 Dependence on supplemental oxygen; Z79.82 Long term (current) use of aspirin; E03.9 Hypothyroidism, unspecified; F17.210 Nicotine dependence, cigarettes, uncomplicated; Z88.1 Allergy status to other antibiotic agents; Z88.2 Allergy status to sulfonamides; Z88.6 Allergy status to analgesic agent; Z88.8 Allergy status to other drugs, medicaments and biological substances
CPT/HCPCS: 36415; 71046; 71100; 72128; 80053; 83690; 83735; 84484; 85025; 99284

== ENCOUNTER → 2017-10-14 10:52 | Outpatient (REF) | payer MEDICARE, MEDICAID, SELFPAY ==
[2017-10-14 10:55] LABS: Adenovirus F 40/41, stool Not Detected (NotDetected); Astrovirus Not Detected (NotDetected); Campylobacter Not Detected (NotDetected); Clostridium Difficile A/B, PCR Not Detected (NotDetected); Cryptosporidium Not Detected (NotDetected); Cyclospora Cayetanesis Not Detected (NotDetected); Entamoeba histolytica Not Detected (NotDetected); Enteroaggregative E coli Not Detected (NotDetected); Enteropathogenic E coli Not Detected (NotDetected); Enterotoxigenic E coli Not Detected (NotDetected); Giardia lamblia Not Detected (NotDetected); Norovirus Not Detected (NotDetected); Plesimonas Shigalloides, PCR Not Detected (NotDetected); Rotavirus A Not Detected (NotDetected); Salmonella, PCR Not Detected (NotDetected); Sapovirus Not Detected (NotDetected); Shiga-like toxin E coli Not Detected (NotDetected); Shigella Enterovasive E coli Not Detected (NotDetected); Vibrio Cholerae Not Detected (NotDetected); Vibrio, PCR Not Detected (NotDetected); Yersinia Entercolitica, PCR Not Detected (NotDetected)
[2017-10-14 13:39] LABS: Occult Blood,Stool Negative (Negative)
== END ==
LOC: LAB 10:52
PROVIDERS: Visit Provider Emergency Medicine
DX: R19.7 Diarrhea, unspecified (principal)
CPT/HCPCS: 82272; 87507; G0328